=== PATIENT | female | born 1935 | race Caucasian/White ===

== ENCOUNTER 2021-02-26 16:57 | Inpatient (IN) | payer MEDICARE, MEDICAID ==
[~2021-02-26] VITALS: Ht 152.4 cm; Wt 45.4 kg
--- NOTE | 2021-02-26 17:33 | NUR ---
PT IS IN ROOM #1B. DR ABEBE EVALUATED THE PT.
[2021-02-26 17:47] LABS: HEMATOCRIT 25.6 % (31.2-41.9); MEAN CORPUSCULAR HEMOGLOBIN 31.5 uug (24.7-32.8); MEAN CORPUSCULAR VOLUME 95.4 fL (75.5-95.3); PLATELET COUNT (AUTO) 136 K/uL (179-408)
[2021-02-26 17:49] LABS: CARBON DIOXIDE 21 mmol/L (21-32); CHLORIDE 112 mmol/L (98-107); CREATININE 2.2 mg/dL (0.6-1.3); GLUCOSE 166 mg/dL (74-106); POTASSIUM 4.7 mmol/L (3.5-5.1); UREA NITROGEN, BLOOD 51 mg/dL (7-18)
[2021-02-26 17:55] LABS: ALANINE AMINOTRANSFERASE 22 U/L (14-59); ALKALINE PHOSPHATASE 68 U/L (50-136); ASPARTATE AMINOTRANSFERASE 12 U/L (15-37); BILIRUBIN,DIRECT 0.1 mg/dL (0.0-0.2); BILIRUBIN,TOTAL 0.2 mg/dL (0.2-1.0)
[2021-02-26] MEDS ORDERED: NITROGLYCERIN OINT 1 GM PACKET TP ONE ×2 (18:00→18:08)
[2021-02-26] MEDS ORDERED: ASPIRIN 81 MG TAB.CHEW PO ONE (18:00)
[2021-02-26] MEDS ORDERED: ASPIRIN 81 MG TAB.CHEW ONE (18:08)
--- NOTE | 2021-02-26 19:25 | NUR ---
Received patient from day shift nurse. Patient is in stable condition, SR on the monitor, BP stable. patient is alert and oriented according to the family who interprets for her. Patient is ambulatory able to walk to the restroom with assistance.
[2021-02-26] MEDS ORDERED: CLONIDINE HCL 0.1 MG TABLET PO PRN (21:00)
[2021-02-26] MEDS ORDERED: MORPHINE SULFATE 2 MG/1 ML DISP.SYRIN IV PRN (21:00)
[2021-02-26] MEDS ORDERED: ONDANSETRON 4 MG/2 ML VIAL IV PRN (21:00)
--- NOTE | 2021-02-26 22:00 | NUR ---
Report given to RN Marisela, patient to go to room 306 Telemetry
--- NOTE | 2021-02-26 23:00 | NUR ---
received report from blanca Cox , patient is awake , on room air , denies distress , incontinent , 18 ga r forearm intact , sinus rhythm
--- NOTE | 2021-02-26 23:00 | NUR ---
Patient transported to the third floor room 306 via gurney. Patient remained in stable condition, No SOB or digns of distress. All paperwork and belongings accompanied patient.
[2021-02-26 23:30] VITALS: BP 137/68
[2021-02-26] MEDS ORDERED: TEMAZEPAM 7.5 MG CAPSULE PO PRN (23:30)
[2021-02-27] MEDS: METOPROLOL TARTRATE 50 MG TABLET PO SCH ×3 (00:18→21:00)
[2021-02-27] MEDS: IV 1/2NS 1000 ML 1,000 ML IV PRN ×2 (01:21→18:26)
[2021-02-27 04:00] VITALS: BP 138/67
[2021-02-27] MEDS: ACETAMINOPHEN 325 MG TABLET PO PRN (05:12)
[2021-02-27 07:12] LABS: HEMATOCRIT 22.4 % (31.2-41.9); MEAN CORPUSCULAR HEMOGLOBIN 31.5 uug (24.7-32.8); MEAN CORPUSCULAR VOLUME 94.3 fL (75.5-95.3); PLATELET COUNT (AUTO) 116 K/uL (179-408)
[2021-02-27 07:35] LABS: IRON, SERUM 47 ug/dL (50-175)
[2021-02-27 07:43] LABS: THYROID STIMULATING HORMONE 2.152 mIU/mL (0.358-3.740)
--- NOTE | 2021-02-27 08:00 | NUR ---
RESTING COMFORTABLY IN BED NO SIGNS OF PAIN OR SOB. CLOSELY MONITORED
[2021-02-27 08:02] LABS: ALANINE AMINOTRANSFERASE 18 U/L (14-59); ALKALINE PHOSPHATASE 53 U/L (50-136); ASPARTATE AMINOTRANSFERASE 10 U/L (15-37); BILIRUBIN,TOTAL 0.2 mg/dL (0.2-1.0); CARBON DIOXIDE 22 mmol/L (21-32); CHLORIDE 113 mmol/L (98-107); CHOLESTEROL 194 mg/dL (<200); CREATININE 2.1 mg/dL (0.6-1.3); GLUCOSE 107 mg/dL (74-106); HDL CHOLESTEROL 37 mg/dL (40-60); MAGNESIUM 2.1 mg/dL (1.8-2.4); PHOSPHOROUS 3.8 mg/dL (2.5-4.9); POTASSIUM 4.4 mmol/L (3.5-5.1); TOTAL PROTEIN, SERUM 5.4 g/dL (6.4-8.2); TRIGLYCERIDES 162 MG/DL (30-150); UREA NITROGEN, BLOOD 51 mg/dL (7-18)
[2021-02-27] MEDS ORDERED: ASPIRIN EC 81 MG TABLET.DR PO SCH (09:00)
[2021-02-27] MEDS: PANTOPRAZOLE SODIUM 40 MG TABLET.DR PO SCH (09:32)
--- NOTE | 2021-02-27 11:00 | NUR ---
SEEN BY DR QUINTERO SEE NOTES.
[2021-02-27 11:40] VITALS: BP 147/62
--- NOTE | 2021-02-27 14:39 | NUR ---
Clinical Social Work Note SW consult was requested for resources and support with discharge. Patient is a 86 year old White female. Patient was sleeping at the time of SW visit. Patients daughter was with patient at bedside. SW spoke with patients daughter and patients grandson over the phone. Daughter and grandson declined any resources upon discharge. Grandson stated that patient lives at home with his mother and she is her caregiver. Patients daughter stated she would continue to care for patient upon discharge.
[2021-02-27 16:08] VITALS: BP 165/70
--- NOTE | 2021-02-27 18:00 | NUR ---
NO ACUTE CHANGE FROM AM ASSESSMENT, REMAINS SR ON MONITOR.
--- NOTE | 2021-02-27 19:30 | NUR ---
RECEIVED PT AWAKE, ALERT AND ORIENTEDX4. PT IN NO ACUTE DISTRESS. IV INTACT. PT ADVISED TO CALL NURSE STAFF IF SHE WILL GO TO BATHROOM . BED ALARM ON FOR SAFETY.PT ON ROOM AIR. PT GRANDDAUGHTER AT BEDSIDE. SAFETY AND COMFORT PROVIDED. WILL CONTINUE TO MONITOR.
[2021-02-27 20:10] VITALS: BP 114/82
[2021-02-27] MEDS: DOCUSATE SODIUM 100 MG CAPSULE PO SCH (20:30)
[2021-02-27] MEDS: ATORVASTATIN 10 MG TABLET PO SCH (20:30)
--- NOTE | 2021-02-27 21:55 | NUR ---
CARLA HELD PER GRANDDAUGHTER STATING PT BLOOD PRESSURE IS FINE AND DOESN'T NEED IT. BP WAS 114/82 AND PULSE80. WILL CONTINUE TO MONITOR.
[2021-02-28 00:05] VITALS: BP 150/66
[2021-02-28 04:10] VITALS: BP 146/70
--- NOTE | 2021-02-28 05:54 | NUR ---
PT SLEPT INTERMITTENTLY. PT IN NO ACUTE DISTRESS. IV INTACT. SAFETY AND COMFORT PROVIDED. PT STABLE. PT HAD EPISODES OF FORGETFULNESS. NEEDS REORIENTATION. WILL ENDORSE FOR CONTINUITY OF CARE.
[2021-02-28] MEDS: PANTOPRAZOLE SODIUM 40 MG TABLET.DR PO SCH (06:21)
[2021-02-28 07:25] LABS: HEMATOCRIT 23.3 % (31.2-41.9); MEAN CORPUSCULAR HEMOGLOBIN 31.1 uug (24.7-32.8); MEAN CORPUSCULAR VOLUME 93.6 fL (75.5-95.3); PLATELET COUNT (AUTO) 118 K/uL (179-408)
[2021-02-28 07:57] LABS: CARBON DIOXIDE 20 mmol/L (21-32); CHLORIDE 112 mmol/L (98-107); FERRITIN 44 ng/mL (8-252); GLUCOSE 104 mg/dL (74-106); MAGNESIUM 1.8 mg/dL (1.8-2.4); PHOSPHOROUS 3.8 mg/dL (2.5-4.9); POTASSIUM 4.6 mmol/L (3.5-5.1); UREA NITROGEN, BLOOD 49 mg/dL (7-18)
[2021-02-28 08:00] VITALS: BP 189/83
[2021-02-28] MEDS: METOPROLOL TARTRATE 50 MG TABLET PO SCH ×2 (08:28→20:04)
--- NOTE | 2021-02-28 09:28 | NUR ---
ORDER DC TELEMETRY TO MS. WILL CONTINUE TO MONITOR.
[2021-02-28] MEDS ORDERED: EPOETIN ALFA-EPBX 10,000 UNIT/ML VIAL SQ ONE (10:00)
[2021-02-28] MEDS: AMLODIPINE 5 MG TABLET PO SCH (10:25)
[2021-02-28 15:58] VITALS: BP 123/64
--- NOTE | 2021-02-28 18:54 | NUR ---
PATIENT REMAINED STABLE. NO SIGNIFICANT CHANGES OBSERVED. VS VNL. DENIES DISCOMFORT. FREQUENT CHECKS DONE. ALL DUE MEDS GIVEN. ALL NEEDS ATTENDED. SAFETY MEASURES MAINTAINED. KEPT CALL LIGHT WITHIN REACH. WILL ENDORSE FOR CONTINUITY OF CARE.
--- NOTE | 2021-02-28 19:30 | NUR ---
RECEIVED PT AWAKE, ALERT AND ORIENTEDX4. DAUGHTER AT BEDSIDE. PT ON ROOM AIR. PT IN NO ACUTE DISTRESS. SAFETY AND COMFORT PROVIDED. WILL CONTINUE TO MONITOR.
[2021-02-28] MEDS: ACETAMINOPHEN 325 MG TABLET PO PRN (19:58)
[2021-02-28 20:00] VITALS: BP 154/58
[2021-02-28] MEDS: DOCUSATE SODIUM 100 MG CAPSULE PO SCH (20:03)
[2021-02-28] MEDS: ATORVASTATIN 10 MG TABLET PO SCH (20:03)
[2021-03-01 04:00] VITALS: BP 170/72
[2021-03-01] MEDS: ACETAMINOPHEN 325 MG TABLET PO PRN (04:59)
--- NOTE | 2021-03-01 06:11 | NUR ---
PT SLEPT INTERMITTENTLY. PT IN NO ACUTE DISTRESS.PT STABLE. IV INTACT. PT GIVEN RESTORIL PRN AT 2118H . TYLENOL 650 MG PRN AT 1957H AND 458FOR LEFT ARM PAIN. CATAPRESS GIVEN AT 045H. PRESCRIBED MEDICATION GIVEN AND PT TOLERATED IT WELL. SAFETY AND COMFORT PROVIDED. WILL ENDORSE TO INCOMING NURSE FOR CONTINUITY OF CARE.
[2021-03-01 06:22] LABS: HEMATOCRIT 24.1 % (31.2-41.9); MEAN CORPUSCULAR HEMOGLOBIN 31.5 uug (24.7-32.8); MEAN CORPUSCULAR VOLUME 95.4 fL (75.5-95.3); PLATELET COUNT (AUTO) 114 K/uL (179-408)
[2021-03-01] MEDS: PANTOPRAZOLE SODIUM 40 MG TABLET.DR PO SCH (06:22)
[2021-03-01 06:30] VITALS: BP 149/63
[2021-03-01 08:04] VITALS: BP 149/63
[2021-03-01] MEDS: AMLODIPINE 5 MG TABLET PO SCH (08:04)
[2021-03-01] MEDS: METOPROLOL TARTRATE 50 MG TABLET PO SCH (08:04)
[2021-03-01] MEDS ORDERED: AMLO-212 PO (11:29)
[2021-03-01] MEDS ORDERED: ATOR10TA PO (11:29)
[2021-03-01] MEDS ORDERED: PANT40TA49 PO (11:29)
[2021-03-01] MEDS ORDERED: RIVA10TA PO (11:29)
[2021-03-01] MEDS ORDERED: Lactose-Free Food PO (11:29)
[2021-03-01] MEDS ORDERED: METO50TA16 PO (11:29)
--- NOTE | 2021-03-01 14:14 | NUR ---
DC ORDERS RECEIVED NOTED AND CARRIED OUT,DC INSTRUCTION AND EDUCATION GIVEN TO THE PT AND HER DAUGHTER.DC HEPLOCK PER MD ORDERS.PT LEFT THE FACILITY VIA PRIVATE CAR IN STABLE CONDITION
[2021-03-01] MEDS ORDERED: ENSURE ENLIVE (VAN) 240 ML LIQUID PO SCH (17:00)
[2021-03-01] MEDS ORDERED: AMLODIPINE 5 MG TABLET PO SCH (21:00)
== END 2021-03-01 14:00 | disposition home or self-care (01) | DRG 205 ==
LOC: ER 17:03 → TELE3 22:49 → MEDSURG3 02-27 14:34 → TELE3 02-27 22:19 → MEDSURG3 02-28 10:42
PROVIDERS: ADMIT Internal Medicine; ATTEND Internal Medicine
DX: M94.0 Chondrocostal junction syndrome [Tietze] (principal); N17.0 Acute kidney failure with tubular necrosis; I48.20 Chronic atrial fibrillation, unspecified; I69.354 Hemiplegia and hemiparesis following cerebral infarction affecting left non-dominant side; I50.32 Chronic diastolic (congestive) heart failure; I13.0 Hypertensive heart and chronic kidney disease with heart failure and stage 1 through stage 4 chronic kidney disease, or unspecified chronic kidney disease; D53.9 Nutritional anemia, unspecified; D63.1 Anemia in chronic kidney disease; F01.50 Vascular dementia, unspecified severity, without behavioral disturbance, psychotic disturbance, mood disturbance, and anxiety; N18.9 Chronic kidney disease, unspecified; N28.1 Cyst of kidney, acquired; Z79.01 Long term (current) use of anticoagulants; R19.5 Other fecal abnormalities; R73.9 Hyperglycemia, unspecified; Z74.09 Other reduced mobility; D69.59 Other secondary thrombocytopenia; Z20.822 Contact with and (suspected) exposure to COVID-19
CPT/HCPCS: 36415; 70030-TC; 71045; 76770; 82378; 83550; 83735; 83970; 84100; 84443; 85025; 85730; 93005; 93307; 97161; A4663; G0378; J0885; J3490; J7030